=== PATIENT | female | born 1970 | race Native Hawaiian/Other Pacific Islander ===

== ENCOUNTER 2018-01-09 13:09 | Outpatient (CLI) | payer BC | END 2018-01-09 19:28 | disposition home or self-care (01) | LOC: MAMMO 13:09 | DX: Z12.31 Encounter for screening mammogram for malignant neoplasm of breast (principal) ==

== ENCOUNTER 2018-01-13 13:02 | Outpatient (CLI) | payer BC | END 2018-01-13 22:25 | disposition home or self-care (01) | LOC: MAMMO 13:02 | DX: R92.8 Other abnormal and inconclusive findings on diagnostic imaging of breast (principal) ==

== ENCOUNTER 2019-02-18 10:11 | Outpatient (CLI) | payer BC | END 2019-02-18 23:45 | disposition home or self-care (01) | LOC: RESP 10:11 | DX: R07.89 Other chest pain (principal) ==

== ENCOUNTER 2019-07-15 09:15 | Outpatient (CLI) | payer BC | END 2019-07-15 19:51 | disposition home or self-care (01) | LOC: CT 09:15 | DX: M25.552 Pain in left hip (principal) ==

== ENCOUNTER 2019-07-26 10:05 | Outpatient (CLI) | payer BC | END 2019-07-26 23:07 | disposition home or self-care (01) | LOC: MRI 10:05 | DX: M25.552 Pain in left hip (principal) ==